=== PATIENT | female | born 1970 | race Caucasian/White ===

== ENCOUNTER 2018-11-24 22:19 | Inpatient (IN) ==
--- NOTE | 2018-11-24 23:23 | PROVIDER DOCUMENTATION ---
HPI-Abdominal Pain/GI Problem - General Chief Complaint: Abdominal Pain Stated Complaint: STOMACH PAIN Time Seen by Provider: 11/24/18 22:44 Source: patient Allergies/Adverse Reactions: Patient Allergies Allergy/AdvReac Type Severity Reaction Status Date / Time No Known Allergies Allergy Verified 04/16/18 22:04 Home Medications: Home Medication List Medication Instructions Recorded Confirmed Last Taken Type Buprenorphine/Naloxone S.l. 1 each SL Q12H #0 tablet 07/02/14 11/24/18 Unknown Rx [Suboxone 8 mg/2 mg] - History of Present Illness-ABD Nature of Presenting Problems: Patient is a 48yo F who presents with complaints of generalized abdominal pain, constipation x2 weeks, nausea, and vomiting yellow/green emesis. Reports she takes Suboxone daily. States she occasionally has constipation but never for this long. Reports last episode of vomiting was 2 days ago. States she is able to keep food and fluids down. Denies fever/chills, diarrhea, dysuria, CP, or SOB. Non-toxic in appearance. Abdominal Pain Onset Location: reports: generalized abdomen Pain Radiation: reports: no radiation Quality of Pain: reports: pressure Severity in ED: reports: moderate Onset/Duration: reports: other (2 weeks) Timing: reports: still present Modifying Factors: improves with: nothing Associated Symptoms: reports: constipation, nausea, vomiting. denies: back/neck pain, diarrhea, fever/chills, shortness of breath, syncope, weakness Last BM: other (2 weeks ago) Dark Stools Present?: reports: none noticed Rectal Bleeding: reports: none # of Diarrhea Episodes: 0 Rectal Pain: reports: none Emesis Description: reports: other (yellow-green) Bruising or Bleeding Gums?: No Similar Symptoms Previously?: No Recently seen or treated by another doctor?: No Review of Systems - Adult - REVIEW OF SYSTEMS - ADULT Constitutional: reports: no symptoms reported. denies: chills, fever Eyes: reports: no symptoms reported Ears, Nose, Mouth & Throat: reports: no symptoms reported. denies: ear pain, throat pain Cardiovascular: reports: no symptoms reported. denies: chest pain, palpitations Respiratory: reports: no symptoms reported. denies: cough, shortness of breath Gastrointestinal: reports: see HPI, abdominal pain, constipation, nausea, vomiting. denies: diarrhea Genitourinary: reports: no symptoms reported. denies: dysuria, urgency Musculoskeletal: reports: no symptoms reported. denies: back pain, neck pain Integumentary: reports: no symptoms reported Neurological: reports: no symptoms reported. denies: dizziness/vertigo, headache/migraines Psychiatric: reports: no symptoms reported Endocrine: reports: no symptoms reported Past History - Adult - PAST MEDICAL HISTORY-ADULT Review of Records: reports: Nursing Assessment Review, Medications Reviewed - IMMUNIZATION STATUS Childhood Immunizations: See Nurse Assessment Flu Vaccine: See Nurse Assessment - FAMILY HISTORY Family History: reviewed, not pertinent - SOCIAL HISTORY Smoking: cigarettes Provider spent 3-5 mins advising pt. on dangers of tobacco.: Discussed manners to quit use, and f/u contacts for add'l counseling. Physical Exam-General - PHYSICAL EXAM-ADULT Initial Vital Signs Reviewed: Yes - CONSTITUTIONAL General Appearance: appears well, alert, no apparent distress. negative: lethargic, slow to respond, obtunded - EYES Eyes: PERRL/EOMI, pink conjunctivae. negative: EOM palsy, scleral icterus - HEAD, EARS, NOSE, MOUTH & THROAT HENMT: normocephalic/atraumatic, moist mucous membranes - NECK Neck: non-tender, full range of motion, supple, normal inspection - RESPIRATORY Respiratory: chest non-tender, lungs clear, normal breath sounds, no pleuratic chest pain, no respiratory distress, no accessory muscle use. negative: crackles, rales, rhonchi, stridor, wheezing, retractions, splinting - CARDIOVASCULAR Cardiovascular: regular rate, rhythm, no gallop - GASTROINTESTINAL (ABDOMEN) Abdominal Exam: soft, no organomegaly, abnormal bowel sounds (hypoactive all quadrants), distended, tenderness (generalized TTP). negative: guarding, rigid, rebound - MUSCULOSKELETAL Back Exam: normal inspection, no CVA tenderness, no vertebral tenderness Extremity: normal range of motion, non-tender, normal gait, normal inspection, pelvis stable - SKIN Integumentary: normal color, warm/dry. negative: cyanosis, jaundice, pallor - NEUROLOGIC Neurologic: grossly normal - PSYCHIATRIC Psych/Mental Status: normal mood/affect, normal thought content, normal thought process, oriented x 3 Progress - PLAN OF CARE/RESULTS Progress/Plan/Lab Results: Vital Signs - 8 hr 11/24/18 22:37 Temperature 97.7 F Pulse Rate 79 Respiratory Rate 20 Blood Pressure 126/80 O2 Sat by Pulse Oximetry 100 Orders Category Date Time Status Orthostatic Vital Signs NOW Care 11/24/18 22:45 Active Saline Loc NOW Care 11/24/18 22:45 Active KUB ABDOMEN [RAD] Stat Exams 11/24/18 22:45 Taken AMYLASE [CHEM] Stat Lab 11/24/18 22:45 Uncollected CBC WITH ELECTRONIC DIFF [HEME] Stat Lab 11/24/18 22:45 Uncollected COMPREHENSIVE METABOLIC PANEL [CHEM] Stat Lab 11/24/18 22:45 Uncollected LIPASE [CHEM] Stat Lab 11/24/18 22:[address] W/POSS RFLX CULT [URINALYSIS] Stat Lab 11/24/18 22:45 Uncollected URINE DRUG SCREEN PL Stat Lab 11/24/18 22:45 Uncollected Result Diagrams: 11/24/18 23:49 11/24/18 23:49 - XRAY 1 XRAY: Bilateral XRAY Study: Abdomen Impression: Abnormal ("Prominent constipation. No evidence of obstruction. As read by Dr. Mcbride.") - CONSULTS/PCP/HOSPITALIST Notification #1 *Consult/PCP/Hospitalist*: Dr. Pacheco Time Discussed: 02:42 Consult Disposition: Admit - CHANGE OF SHIFT REPORT (ED Provider) 1 Report Given and Care Transferred to:: MD Reed Time of Transfer: 00:38 Items Pending: CT/MRI Results Departure - Departure Date of Disposition Decision: 11/25/18 Time of Disposition Decision: 02:40 DIAGNOSIS: Pelvic mass, Substance abuse Vomiting Qualifiers: Vomiting type: unspecified Vomiting Intractability: unspecified Nausea presence: with nausea Qualified Code(s): R11.2 - Nausea with vomiting, unsp ecified Disposition: ADMITTED INPATIENT 09 Certified Medical Emergency: Emergent Condition: Stable Referrals and Follow-Ups: None,PCP [Primary Care Provider] - - Critical Care Note This patient required my direct & personal management of CC.: No Attestation - Physician/ CECILLE Attestation Patient care was provided by Advanced Practice Provider:: Yes Advanced Practice Provider:: Yulisa Samuel Advanced Practice Provider documentation review:: The Mid-level provider documentation, treatment plan and medical decision making was reviewed by the physician who agrees with all treatment and medical decision making by the MLP. 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 patient will be admitted to Medicine service.) Advanced Practice Provider documentation review:: Supervising physician onsite and consulted in the evaluation and care of this patient. The physician did have a face to face encounter with the patient.
[2018-11-24 23:59] LABS: BASO# 0.03 X1000 (0.0-0.2); BASO% 0.3 % (0.0-0.8); EOS% 1.1 % (0.0-10.0); HEMATOCRIT 43.4 % (37.0-47.0); HEMOGLOBIN 14.3 g/dL (12.0-16.0); IMM GRAN# 0.01 X1000 (0.0-0.04); IMM GRAN% 0.1 % (0.0-0.5); LYMPH# 3.71 X1000 (1.2-3.4); LYMPH% 42.3 % (20.5-51.1); MCH 28.5 PG (27-31); MCHC 32.9 g/dL (33-37); MCV 86.5 FL (81-99); MONO# 0.67 X1000 (0.11-0.59); MONO% 7.6 % (1.7-9.3); MPV 10.6 FL (7.4-10.4); NEUT# 4.25 X1000 (1.4-6.5); NEUT% 48.6 % (42.2-75.2); PLT 320 X1000 (130-400); RBC 5.02 XMIL (4.2-5.4); RDW 13.3 % (11.5-14.5); WBC 8.77 X1000 (4.8-10.8)
[2018-11-25 00:19] LABS: AGAP 11; ALKALINE PHOSPHATASE 80 U/L (32-104); AMYLASE 43 U/L (20-200); BUN 8 mg/dL (8-22); CALCIUM 8.8 mg/dL (8.8-10.2); CHLORIDE 101 mmol/L (98-107); COSMO 278; CREATININE 0.6 mg/dL (0.5-0.9); ESTIMATED GFR > 60; GLUCOSE 130 mg/dL (70-104); GOT 25 U/L (10-30); GPT 28 U/L (10-36); LIPASE 22 U/L (13-60); POTASSIUM 3.4 mmol/L (3.5-5.1); SODIUM 139 mmol/L (136-145); TCO2 27 mmol/L (25-35); TOTAL PROTEIN 7.5 g/dL (6.3-8.3)
[2018-11-25 00:39] LABS: URINE BACTERIA 3+ /HFP; URINE EPITHELIAL CELLS <10 /HPF (<10); URINE RBC <10 /HPF (<10); URINE SOURCE CLEAN CATCH
[2018-11-25 00:40] LABS: BILIRUBIN URINE NEGATIVE (NEGATIVE); BLOOD URINE TRACE (NEGATIVE); CLARITY CLEAR (CLEAR); COLOR YELLOW; GLUCOSE URINE NEGATIVE (NEGATIVE); KETONE URINE TRACE mg/dL (NEGATIVE); LEUKOCYTES URINE 1+ (NEGATIVE); NITRITE URINE NEGATIVE (NEGATIVE); PH URINE 6.5; PROTEIN URINE TRACE mg/dL (NEGATIVE); URINE CRYSTAL CA OXALATE PRESENT /HPF; UROBILINOGEN URINE 1 mg/dL
[2018-11-25 00:52] LABS: UR AMPHETAMINES QUAL PRESUMPTIVE POSITIVE (NONE DETECT); UR BARBITUATES QUAL NONE DETECTED (NONE DETECT); UR BENZODIAZEPIN QUAL PRESUMPTIVE POSITIVE (NONE DETECT); UR COCAINE QUAL NONE DETECTED (NONE DETECT); UR METHADONE QUAL NONE DETECTED (NONE DETECT); UR METHAMPHETAMINE QUAL PRESUMPTIVE POSITIVE (NONE DETECT)
[2018-11-25 00:53] LABS: UR CANNABINOIDS QUAL PRESUMPTIVE POSITIVE (NONE DETECT); UR OPIATES QUAL PRESUMPTIVE POSITIVE (NONE DETECT); UR OXYCODONE QUAL NONE DETECTED (NONE DETECT); UR PCP QUAL NONE DETECTED (NONE DETECT); UR PROPOXYPHENE QUAL NONE DETECTED (NONE DETECT); UR TCA QUAL NONE DETECTED (NONE DETECT)
[2018-11-25] MEDS ORDERED: NS 1,000 ML IV ONE (02:42)
[2018-11-25] MEDS ORDERED: ZOFRAN IV PRN (02:42)
[2018-11-25] MEDS: NICODERM PATCH TD SCH ×2 (04:39→09:28)
--- NOTE | 2018-11-25 08:41 | Diag Imaging Result Doc PS360 ---
EXAM: KUB ABDOMEN HISTORY: constipation TECHNIQUE: Single view COMPARISON: None. FINDINGS: Moderate fecal retention is noted ascending colon. No bowel distention. No mass effect organomegaly is appreciated. Moderate degenerative arthropathy is noted lumbar spine and bilateral hips. IMPRESSION: Moderate fecal retention ascending colon. No evidence for obstruction. Electronically signed by Dena Granado 11/25/2018 8:38 AM
[2018-11-25] MEDS ORDERED: LACTULOSE PO ONE (08:44)
[2018-11-25] MEDS: SUBOXONE 2 MG/0.5 MG FILM SL SCH (09:53)
--- NOTE | 2018-11-25 10:03 | Diag Imaging Result Doc PS360 ---
EXAM: CT ABD/PELVIS W/IV CONT ONLY HISTORY: abd pain; hypoactive bowel sounds TECHNIQUE: Routine with IV contrast. No enteric contrast. COMPARISON: None. FINDINGS: There is a 13 cm cystic mass arising from the pelvis extending to the level the umbilicus. There is considerable mass effect upon the left lateral uterus. This is likely arising from the left ovary. There is at least one thin septation. Recommend follow-up with ultrasound or with MRI with contrast. The liver, spleen, pancreas, adrenal glands are unremarkable. There is a nonobstructing calyceal stone left kidney. Otherwise kidneys unremarkable. No hydronephrosis. No calcified gallstones. There is no free fluid, free air, or bowel distention. The appendix is not appreciated. The aorta is of normal caliber. No inflammatory changes are appreciated. There is a small hiatal hernia. No adenopathy is appreciated. Preliminary interpretation was given by [facility]. IMPRESSION: 1.Large, approximately 13 cm, cystic left adnexal mass. Recommend follow-up with pelvic ultrasound or MRI. 2.Small hiatal hernia. This exam was performed using automated exposure control, adjustment of mA or kV according to patient size, and/or use of iterative reconstruction technique. Electronically signed by Dena Granado 11/25/2018 8:52 AM
--- NOTE | 2018-11-25 10:32 | Diag Imaging Result Doc PS360 ---
US ABDOMEN-COMPLETE - 11/25/2018 INDICATION: pain TECHNIQUE: Hassan scale, color Doppler, and duplex evaluation of the abdomen was performed. COMPARISON: None FINDINGS: The liver appears normal in size and echotexture. No focal masses are appreciated. The IVC and aorta appear normal. The pancreas is obscured by bowel gas artifact. The gallbladder is free of stones and sludge has a normal caliber wall. The common bile duct measures 4 mm. The portal vein is patent with hepatopetal flow. Spleen is unremarkable. The kidneys appear normal bilaterally. There is no hydronephrosis. There is a cystic mass arising from the left pelvis measuring 13.2 x 12.1 x 15.1 cm.. There is a mildly thickened septation inferiorly no internal Doppler flow. IMPRESSION: 1.Septated cystic mass within the pelvis with a maximal dimension of 15 cm. 2.No cholelithiasis. Electronically signed by Dena Granado 11/25/2018 10:30 AM
--- NOTE | 2018-11-25 10:44 | HISTORY AND PHYSICAL ---
PRIMARY CARE PROVIDER: No one. CHIEF COMPLAINT: Two weeks of no bowel movement. HISTORY OF PRESENT ILLNESS: Ms. Lina Mccarthy is a 48-year-old female with a medical history of rheumatoid arthritis, ADD, anxiety, and prescription drug abuse history, who presents with complaints of no bowel movement for 2 weeks. Also for the last 2 weeks, has been having some vomiting about every 2 days, but despite that, has had no issues with eating, according to her. She is also complaining of hot and cold flashes, dizziness, and she states that she has had some left lower abdominal swelling for the last 2 months, but over the last 2 weeks, it has worsened. She denies any abdominal pain. Workup revealed, on abdominopelvic CT, a preliminary report of a large cystic-type mass or lesion that is 12.5 x 12.6 x 12.3 cm on the left of the uterus, could be on the left ovary, so [facility] has been consulted to evaluate. Will also do an abdominal ultrasound. Her x-ray shows fecal retention of moderate amounts. Will give her lactulose that will help her have a bowel movement. This is likely secondary to daily Suboxone use. PAST MEDICAL HISTORY: 1. ADD. 2. Rheumatoid arthritis, untreated. 3. Anxiety. 4. History of drug abuse with the use of opioids since the age of 14. PAST SURGICAL HISTORY: 1. section. 2. Appendectomy. SOCIAL HISTORY: She is a 1 pack per day smoker for at least 10+ years. Denies alcohol. States she quit taking prescription pain pills since 15 years ago despite the multiple positives on her urine drug screen. She is disabled. Says she occasionally uses Xanax and occasionally smokes marijuana. FAMILY HISTORY: Mother: No known medical history. Father: Unknown as well. ALLERGIES: No known drug allergies. HOME MEDICATIONS: Suboxone sublingual half a tablet daily. REVIEW OF SYSTEMS: A 14-point review of systems was complete. All were negative, except for those mentioned above in the HPI. PHYSICAL EXAMINATION: VITAL SIGNS: Temperature 98.2 degrees, heart rate 72, respiratory rate 18, blood pressure 126/61, O2 saturation 98% on room air. Weight 199 pounds, height is 5 feet 8 inches, BMI is 30.3. GENERAL: Ms. Lina Mccarthy is a 48-year-old female. She is in no acute distress. She is able to answer questions appropriately. HEENT: Atraumatic, normocephalic. Pupils equal, round, reactive to light. Extraocular movements intact. Mucous membranes are dry. NECK: Trachea midline. CARDIOVASCULAR: S1, S2. Regular rate and rhythm. No rubs, gallops, murmurs. No lower extremity edema. There are +2 dorsalis and radial pulses. Negative JVD or carotid bruits. PULMONARY: Clear to auscultation. Bilateral breath sounds. No accessory muscle use or work of breathing noted. GASTROINTESTINAL: Soft. Tender in left lower quadrant with abdominal palpation. Some swelling noted. There is a palpable area that is tender for her. She does have positive bowel sounds, but they are hypoactive. EXTREMITIES: Moves all extremities equally. Full range of motion. NEUROLOGIC: A and O x3. Follows commands. Sensory is intact. SKIN: Warm, dry, intact. LABORATORY DATA: White blood cells 8000, hemoglobin 14, hematocrit 43, platelet count 320,000. Sodium 139, potassium 3.4, BUN 8, creatinine 0.6, glucose 130, calcium 8.8. Bilirubin 0.20, AST 25, ALT 28, albumin 4.0. Amylase 43, lipase 22. Urinalysis: Trace protein, 1+ white blood cells, 10 to 20 microscopic white blood cells, 3+ bacteria. Urine drug screen: Positive opiates, positive amphetamines, positive methamphetamines, positive benzodiazepines, positive for cannabinoids. IMAGING: Abdominal x-ray final report shows moderate fecal retention in the ascending colon, but no evidence of obstruction. Abdominopelvic CT, the preliminary report shows a large cystic lesion measuring up to 12.5 x 12.6 x 12.3 cm present adjacent to the uterus on the left, which may originate from the left ovary. There are also some mild multilevel degenerative changes of the visualized spine. There is a small hiatal hernia. ASSESSMENT AND PLAN: 1. Constipation for 2 weeks. She does have a moderate amount of stool. She will get a dose of lactulose. 2. Left abdominal swelling for [address] scan shows a max of 12.6 cm left cyst that could be on the left ovary or the left uterine. Abdominopelvic CT, preliminary report, reveals a max size of 12.6 cm lesion on the left of the uterus or left ovary, which she states the size of it has enlarged over the last [address] Pulliam with Gynecology is on-call and has been notified and will evaluate this patient. 3. Multidrug abuse. Positive for multiple drugs. She admits to smoking marijuana every once in a while, admits to taking Xanax that is not prescribed to her. Denies crystal meth. Her urine drug screen is positive for opiates, which she is on Suboxone. She gets that daily, and that has been resumed. Also positive for amphetamines, which she claims she has been taking Adderall. Positive for methamphetamines, benzodiazepines, and cannabinoids. No signs of any type of withdrawal at this time. 4. History of anxiety. Self-medicates with Xanax. 5. History of attention-deficit disorder. She used to take Adderall, but she has not had any prescriptions filled for Adderall since 04/2018. 6. Tobacco abuse. Cessation discussed. 7. Deep venous thrombosis prophylaxis. Sequential compression devices. Dictated by BRENT Chang for Beck Pacheco MD cc: BRENT Chang MD
--- NOTE | 2018-11-25 18:52 | CONSULTATION ---
DATE OF CONSULTATION: 11/25/2018 CHIEF COMPLAINT: Abdominal pain and pressure. HISTORY OF PRESENT ILLNESS: Patient is a 48-year-old white female G2, P2, who presents with complaints of increasing abdominal discomfort. The patient reports that she has been having issues with constipation as well. PAST MEDICAL HISTORY: Significant for rheumatoid arthritis, anxiety, thyroid dysfunction, substance abuse. PAST SURGICAL HISTORY: and appendectomy. PAST OB HISTORY: G2, P2, spontaneous vaginal delivery x1, times. CALCULUS TEACHER HISTORY: Menarche at age 15. REVIEW OF SYSTEMS: All systems reviewed and noncontributory. FAMILY HISTORY: Unremarkable. SOCIAL HISTORY: Tobacco use 1 pack per day. Alcohol use none. MEDICATIONS: Suboxone 8 mg b.i.d., Xanax occasional and Adderall occasional. ALLERGIES: No known drug allergies. PHYSICAL EXAMINATION: Vital Signs: Height 5 feet 8 inches, weight 199 pounds. Temperature 98.2 degrees, pulse of 72, blood pressure 126/61, respirations 18. HEENT: Pupils equal, round, reactive to light and accommodation. Extraocular movements intact. Oropharynx clear. Neck: Supple. No thyromegaly. Lungs: Clear to auscultation. Heart: Regular rate and rhythm. Abdomen: The patient with some discomfort in abdomen and there was a palpable mass around the umbilicus. Patient with some discomfort but she did not have rebound tenderness. Extremities: No clubbing, cyanosis, or edema noted. Neurologic: Cranial nerves 2-12 grossly intact. Motor 5/5. The patient had a CT scan in the emergency room that showed a 13 cm cystic mass arising from the pelvis on the left side. Followup ultrasound showed 15 x 12 x 13 left pelvic cystic mass, small thick and septate x1 but the vast majority of it was cystic component. ASSESSMENT/PLAN: Pelvic mass, most likely left ovarian cyst. Will obtain a CA-125 for further evaluation and discuss with patient about treatment options including surgery here or with the CALCULUS TEACHER oncologist. At the present time, patient seems to be stable and will allow her clear liquids. cc: Av Pulliam III, MD
--- NOTE | 2018-11-25 19:14 | HISTORY AND PHYSICAL ---
ADDENDUM: Patient seen and examined by myself. Full note dictated and discussed with nurse practitioner. Patient presented to the hospital saying it has been over 2 weeks since she had a bowel movement. She does have a cystic appearing ovarian mass. It appears as though she has been using illicit substances. She notes that she stopped pain pills several years ago, but her drug screens are frequently positive for multiple narcotic substances. We are going to admit her to the hospital, attempt to improve her constipation, ask PEDIATRIC OPHTHALMOLOGIST to evaluate her ovarian lesion. Further orders as needed. cc: Beck Pacheco MD
[2018-11-26 06:11] LABS: BASO# 0.03 X1000 (0.0-0.2); BASO% 0.4 % (0.0-0.8); EOS# 0.09 X1000 (0.0-0.7); EOS% 1.2 % (0.0-10.0); HEMATOCRIT 42.2 % (37.0-47.0); HEMOGLOBIN 13.8 g/dL (12.0-16.0); IMM GRAN# 0.01 X1000 (0.0-0.04); IMM GRAN% 0.1 % (0.0-0.5); LYMPH# 3.68 X1000 (1.2-3.4); LYMPH% 49.7 % (20.5-51.1); MCH 28.3 PG (27-31); MCHC 32.7 g/dL (33-37); MCV 86.5 FL (81-99); MONO# 0.54 X1000 (0.11-0.59); MONO% 7.3 % (1.7-9.3); MPV 11.2 FL (7.4-10.4); NEUT# 3.06 X1000 (1.4-6.5); NEUT% 41.3 % (42.2-75.2); PLT 295 X1000 (130-400); RBC 4.88 XMIL (4.2-5.4); RDW 13.2 % (11.5-14.5); WBC 7.41 X1000 (4.8-10.8)
[2018-11-26 06:41] LABS: AGAP 11; ALBUMIN 3.8 g/dL (3.5-5.0); ALKALINE PHOSPHATASE 75 U/L (32-104); BUN 5 mg/dL (8-22); CALCIUM 8.8 mg/dL (8.8-10.2); CHLORIDE 105 mmol/L (98-107); COSMO 282; CREATININE 0.5 mg/dL (0.5-0.9); ESTIMATED GFR > 60; GLUCOSE 91 mg/dL (70-104); GOT 24 U/L (10-30); GPT 26 U/L (10-36); POTASSIUM 3.8 mmol/L (3.5-5.1); SODIUM 143 mmol/L (136-145); TCO2 27 mmol/L (25-35); TOTAL PROTEIN 7.1 g/dL (6.3-8.3)
[2018-11-26] MEDS ORDERED: GOLYTELY PO ONE (10:35)
[2018-11-26] MEDS: SUBOXONE 2 MG/0.5 MG FILM SL SCH (10:41)
[2018-11-26] MEDS: NICODERM PATCH TD SCH (10:41)
[2018-11-26] MEDS ORDERED: ROCEPHIN 1 GM in NS 50 ML IV SCH (11:00)
--- NOTE | 2018-11-26 11:16 | PROGRESS NOTE ---
DATE: 11/26/2018 SUBJECTIVE: The patient reports not having any bowel movements with medication that she has received here; in this case is lactulose. OBJECTIVE: Vital Signs: Temperature 98.1 degrees, heart rate 63, respiratory rate 18, blood pressure 103/60, O2 saturation 100% on room air. General Examination: This is a 48-year-old, female lying in bed, in no acute distress. Cardiovascular Examination: S1 and S2 heard. No murmurs, gallops, or rubs. Regular rate and rhythm. Respiratory Examination: Clear bilaterally to auscultation. No work of breathing or using accessory muscles. Abdomen: Soft. A little bit tender to palpation in the left lower quadrant. Bowel sounds present. No organomegaly. Extremities: No clubbing, cyanosis, or edema. Peripheral pulses present in both legs. Neurological Examination: The patient is alert and oriented x3. Able to follow commands. Laboratory Data: Number white cell count, with normal BMP. ASSESSMENT AND PLAN: 1. Constipation. That problem has been present for the last 2 weeks. She received 1 dose of lactulose but it is not helping. Considering her history of opiate abuse and being on Suboxone, I think we need to use something much more stronger so we will start this patient on GoLYTELY. That is going to be provided to her until she starts having bowel movements. 2. Large ovarian cyst. That is what we found out on the CT of the abdomen. Obstetrics/gynecology has been consulted. They are basically planning to wait for the results of the CA-125 to see what they are going to do. We will monitor this patient closely. 3. Polysubstance abuse. Patient's urine drug screen is positive for multiple drugs. She smokes marijuana. She takes Xanax without any prescription. She is on Suboxone for opiate addiction. Positive for amphetamines and benzodiazepines as well. At this point, she is not displaying any signs of withdrawal. We will continue to monitor. 4. History of anxiety/attention deficit disorder. Aware. 5. Tobacco abuse. The patient has been encouraged to stop smoking cigarettes. 6. Urinary tract infection. We will start ceftriaxone until we get the final results of those urine cultures. 7. Disposition. At this point, we will continue to treat the urinary tract infection. We will see the results of the CA-[address] Pulliam will keep this patient here for this big cyst or prefer to be sent to [facility]. Addendum: Talked with Dr. Pulliam. She can be discharged from his standpoint and he will arrange an appointment with Oncology OB-A[facility] FLIGHT ATTENDANT at [facility]. cc: Tuan Canada MD [facility]
--- NOTE | 2018-11-26 14:45 | DISCHARGE SUMMARY ---
ADMISSION DATE: 11/25/2018 DISCHARGE DATE: 11/26/2018 ADMISSION DIAGNOSIS: 1. Constipation. 2. Left abdominal swelling for 2 months and now with a left ovarian versus uterine cyst. 3. Poly drug abuse. 4. Anxiety. 5. ADD. 6. Tobacco abuse. DISCHARGE DIAGNOSIS: 1. Constipation. 2. Large ovarian cyst on the left. 3. Polysubstance abuse. 4. Anxiety with ADD. 5. Tobacco abuse. 6. Urinary tract infection. Ceftriaxone was started. CONSULTATIONS: Dr. Pulliam with PRESS TECHNICIAN. SURGERIES AND PROCEDURES: None. HOSPITAL COURSE: Ms. Lina Mccarthy is a 48-year-old female who presented with complaints of no bowel movement for 2 weeks. She has also noticed over the last 2 months she had more swelling in the left lower quadrant of her abdomen with tenderness. She was given lactulose to help with bowel movement. She was also given GoLYTELY to help with bowel movement and she was able to have a bowel movement prior to being discharged. She was evaluated by Dr. Pulliam for the left uterine versus ovarian cyst and will be seeing an outpatient oncology PRESS TECHNICIAN physician for possible surgical procedure of removal of the cyst. It is noted while she was here she was found to have a urinary tract infection and was treated for that. DISCHARGE VITAL SIGNS: Temperature 98.1 degrees, heart rate 63, respiratory rate 18, blood pressure 103/60, O2 saturation 100% on room air. DISCHARGE LAB DATA: White blood cells 7000, hemoglobin 13, hematocrit 42, platelet count 295, sodium 143, potassium 3.8, BUN 5, creatinine 0.5, glucose 91, calcium 8.8, bilirubin 0.40. AST 24, ALT 26, albumin 3.8. 3+ bacteria in the urine. Urine drug screen was positive for opiates, amphetamines, methamphetamines, benzodiazepines, and cannabinoids. Urine culture showed gram-negative rods. IMAGING: Abdominal x-ray, moderate fecal retention in the ascending colon. No obstruction. Abdominal pelvic CT. Large, approximately 13 cm, cyst of the left. Adnexal mass. A small hiatal hernia. Abdominal ultrasound, septated cystic mass within the pelvis with a max dimension of 15 cm. No cholelithiasis. DISCHARGE MEDICATIONS: 1. Suboxone. She takes half a tablet sublingual daily. 2. Nicotine patch. 3. Back pain. Medications. 4. Cefdinir 300 mg twice a day for her urinary tract infection. DISCHARGE DIET: Regular. ACTIVITY: As tolerated. PHYSICIAN FOLLOW UP: Shiv Macdonald DISCHARGE EDUCATION: If her condition changes, contact physician and/or return to the emergency department. Changes may include, but are not limited to, shortness of breath, increased fatigue, excessive bleeding, unexplained weight loss or gain, unmanageable pain, signs or symptoms of infection. DISCHARGE DISPOSITION: Home. Dictated by BRENT Chang for Tuan Canada MD Addendum: Patient seen and examined by myself. Agree with BRENT note. It reflects my assessment and plan. Patient is being discharged in stable condition. Will be seen by Dr. Macdonald at [facility] as scheduled. cc: BRENT Chang MD [facility]
[2018-11-26 14:56] VITALS: BP 109/96
== END 2018-11-26 17:46 | disposition home or self-care (01) | DRG 392 ==
LOC: P.ED 22:19 → P.MEDSURG 22:19 → SUATTDRO 11-25 03:00
PROVIDERS: ATTEND Internal Medicine